=== PATIENT | male | born 1980 | race Caucasian/White ===

== ENCOUNTER 2016-09-22 13:12 | Emergency (ER) | payer OTHER ==
[~2016-09-22] VITALS: Ht 175.3 cm; Wt 74.9 kg
[~2016-09-22 13:12] MED LIST: ADDERALL10 MG PO; BUSPAR10 MG PO; Buspar PO; CELEXA10 MG PO; CIPROFLOXACIN250 MG PO; FLAGYL500 MG PO; NICOTINE PATCH1 EAC1 TD; NOHOMEMEDS; ONDANSETRON ODT4 MG PO; PANTOPRAZOLE SO40 MG PO; PAXIL20 MG PO; Paxil PO; oxyCODONE PO
[2016-09-22 16:10] LABS: EOSINOPHIL (%) 3.5 % (0-5); EOSINOPHIL COUNT 0.3 K/uL (0-0.3); HEMATOCRIT 41.5 % (38.0-50.0); IMMATURE GRANULOCYTE (%) 0.7 % (0.0-0.7); IMMATURE GRANULOCYTE COUNT 0.1 K/uL; INSTRUMENT ABS NEUTROPHIL CT 5.5 K/uL; MCH 31.7 PG (29.0-34.0); MCHC 32.5 G/DL (30.0-36.0); MCV 97.4 FL (86-99); MEAN PLAT.VOLUME 9.9 uM^3 (9.0-12.4); MONOCYTE (%) 7.8 % (3-12); MONOCYTE COUNT 0.7 K/uL (0-0.8); NEUTROPHIL (%) 63.9 % (45-76); NEUTROPHIL COUNT 5.5 K/uL (1.8-6.4); PLATELET COUNT 299 K/uL (156-360); RBC DIS.WIDTH-CV 12.3 % (11.8-14.6); RBC DIS.WIDTH-SD 44.4 % (39-53); RED BLOOD COUNT 4.26 M/uL (4.00-5.50); WHITE BLOOD COUNT 8.6 K/uL (4.1-10.2)
[2016-09-22 16:27] LABS: CHLORIDE 105 mEq/L (99-109); POTASSIUM 3.9 mEq/L (3.7-5.4); SODIUM 142 mEq/L (136-147)
[2016-09-22 16:29] LABS: GLUCOSE 125 mg/dL (70-99)
[2016-09-22 16:30] LABS: ANION GAP 9 MEQ/L (2-14)
[2016-09-22 16:33] LABS: GFR ESTIMATE (CALCULATED) > 59 mL/min/; UREA NITROGEN (BUN) 9 mg/dL (9-23)
[2016-09-22 16:34] LABS: TROP-I INTERPRETATION NEGATIVE; TROPONIN-I < 0.01 ng/mL (0.0-0.30)
[2016-09-22 16:49] VITALS: BP 129/86
== END 2016-09-22 17:15 | disposition home or self-care (01) ==
LOC: EME 13:12
PROVIDERS: Physician Assistant
DX: R42 Dizziness and giddiness (principal)
CPT/HCPCS: 80048; 84484; 85025; 93005; 99281; 99284